=== PATIENT | female | born 1945 | race Caucasian/White ===

== ENCOUNTER 2020-09-14 12:57 | Inpatient (IN) | payer OTHER ==
[2020-09-14] VITALS (10 sets, daily range): BP systolic 99–159; BP diastolic 42–78
[~2020-09-14] VITALS: Ht 170.2 cm; Wt 121.6 kg
[2020-09-14 16:26] LABS: HEMATOCRIT 41.6 % (37.0-47.0); HEMOGLOBIN 13.8 gm/dL (12.0-15.0); MCH 29.7 pg (26.0-34.0); MCHC 33.2 g/dL (28.0-37.0); MCV 89.5 fL (80.0-100.0); RBC 4.64 mil/uL (4.20-5.00); RDW 13.5 % (10.5-14.5)
[2020-09-14 16:31] LABS: CALCIUM 9.3 mg/dL (8.5-10.1); CREATININE 1.5 mg/dL (0.6-1.0)
[2020-09-14 16:33] LABS: POTASSIUM 4.6 mmol/L (3.5-5.1)
--- NOTE | 2020-09-14 16:59 | EKG ---
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
[2020-09-14] MEDS ORDERED: BIOTIN10000 MC1 PO (17:21)
[2020-09-14] MEDS ORDERED: PRESERVISION A1 EAC2 PO (17:22)
[2020-09-14] MEDS ORDERED: D3 DOTS50 MCG PO (17:22)
[2020-09-14] MEDS ORDERED: SIMVASTATIN80 MG PO (17:23)
[2020-09-14] MEDS ORDERED: LOPRESSOR50 MG PO (17:23)
[2020-09-14] MEDS ORDERED: FUROSEMIDE 20 M20 M1 PO (17:24)
[2020-09-14] MEDS ORDERED: DRIZALMA SPRINK30 MG PO (17:24)
[2020-09-14] MEDS ORDERED: CHILDREN'S ASPI81 M1 PO (17:25)
--- NOTE | 2020-09-14 17:30 | NUR ---
PT. ARRIVED AT THE FLOOR CLOSE TO 1500; PT. AOX4; ABLE TO TRANSFER FROM STRACHER TO BED WITH ASSISTANCE X1; NO C/O PAIN; EDUCATED ABOUT ADMISSION; FALL PRECAUTIONS; GOALS THROUGH THE AFTERNOON; ST. UNDERSTANDING; DR. MATOS NOTIFIED ABOUT PT. BEING ON THE FLOOR; HR GOING FROM 60s-150s; NON SUSTAIN; AFTER 10 MINUTES PT'S HR SUSTAINED ON THE 150s: EKG URGENT ORDERED PER PROTOCOL; PHYSICIAN NOTIFIED; DR. MATOS ROUNDING ON PT.; ORDERS RECEIVED; NOTIFIED ABOUT SBP ON THE 99; PER ORDER NO RUN BOLUS; CONSULT DR. ZAMORA; DR. ZAMORA ROUNDING ON PT.; ORDERS ON PLACED; ADENOSINE GIVEN; PT. C/O DIZZINESS; HR BELOW 100 FOR A FEW SECONDS; HR UP TO 160s: PER DR. ZAMORA OK TO START ON CARDIZEM; NOTIFIED ABOUT SBP 99; OK TO START CARDIZEM GTT; SBP ON THE 120s; MEDICATION TITRATE; CHECK CHARTING; AFIB RYTHM; HR GOING TO 150s FROM TIME TO TIME; NON SUSTAINED; PT. C/O "SPELLS"; AFTER ABOUT ONE HOUR HR BELOW 100s; MONITORING; CARDIZEM GTT RUNNING; ASSESSMENT CHARGED; ADMISSION PERFORMED; FOLLOWING POC; WILL PASS ON REPORT;
[2020-09-15] VITALS (7 sets, daily range): BP systolic 111–141; BP diastolic 43–59
--- NOTE | 2020-09-15 01:13 | NUR ---
ASSESSMENT: PT REMAIN ALERT AND ORIENT TIMES THREE, FORGETFUL AT TIMES TO SITUATION. CARDIZEM GTT CONTINUES AT 10ML/HR. HR IN THE 70-80'S. DENIES SOB AND PAIN CURRENTLY. SR, AFIB PER MONITOR. ENCOURAGED TO TURN SELF IN BED. RIGHT BOOT ON LE. DENEIS DIZZINESS. SLOW PROGRESS TOWARDS DC GOALS. WILL CONTINUE TO MONITOR.
[2020-09-15 04:12] LABS: CALCIUM 8.7 mg/dL (8.5-10.1); CREATININE 1.5 mg/dL (0.6-1.0)
[2020-09-15 04:37] LABS: HEMOGLOBIN 12.3 gm/dL (12.0-15.0); MCH 29.3 pg (26.0-34.0); MCHC 32.4 g/dL (28.0-37.0); MCV 90.2 fL (80.0-100.0); RBC 4.21 mil/uL (4.20-5.00); RDW 13.9 % (10.5-14.5); WBC 7.6 thou/uL (4.0-11.0)
--- NOTE | 2020-09-15 12:12 | 2DMMODE ---
[facility] [address] 2 D/M-MODE ECHOCARDIOGRAM Name: JAVED PATTON Room #: 218-P ADM IN M.R.#: [id number] Admission: 09/14/20 Attend Phys: Sherita Gunn MD Discharge: Date of : 43 Report #: [id number] THIS REPORT FOR: cc: FAM - Family physician unknown FAM - Family physician unknown Suresh Juares MD ~ APPROVED REPORT Study performed: 09/15/2020 09:04:14 EXAM: Comprehensive 2D, Doppler, and color-flow Echocardiogram Patient Location: In-Patient Room #: 218 Status: routine BSA: 2.30 HR: 74 bpm BP: 122/43 mmHg Rhythm: PVC's Other Information Study Quality: Adequate Risk Factors: Cardiac Risk Factors: HTN Indications Dizziness and Vertigo Syncope Tachycardia Hypertension/HDD 2D Dimensions RVDd: 42.08 mm IVSd: 17.35 (7-11mm) LVOT Diam: 24.34 (18-24mm) LVDd: 52.71 mm PWd: 13.59 (7-11mm) Ascending Ao: 33.98 (22-36mm) Left Atrium: 44.07 (27-40mm) Aortic Root: 34.27 mm Volumes Left Atrial Volume (Systole) Single Plane 4CH: 51.39 mL Single Plane 2CH: 35.96 mL Biplane LA Volume: 48.00 mL LA ESV Index: 21.00 mL/m2 [facility] [employer] [place] [place] [address] 2 D/M-MODE ECHOCARDIOGRAM Name: JAVED PATTON DEVON Room #: 218-P [facility] IN M.R.#: [id number] Admission: 09/14/20 Attend Phys: Prince Rubio Discharge: Date of : 43 Report #: [id number] Aortic Valve AoV Peak Armaan.: 1.60 m/s AO Peak Gr.: 10.28 mmHg LVOT Max P.56 mmHg LVOT Max V: 1.07 m/s JESUS Vmax: 3.10 cm2 AI Vmax: 3.06 m/s AI Whitman: 0.90 m/s2 AI PHT: 1000.32 ms Mitral Valve MV Peak Gr.: 3.23 mmHg MV Mean Gr.: 1.60 mmHg E/A Ratio: 1.0 MV Decel. Time: 178.42 ms MV E Max Armaan.: 0.89 m/s MV A Armaan.: 0.93 m/s MV Max Armaan.: 0.90 m/s MV Mean Armaan.: 0.58 m/s MV VTI: 415.61 mm MV PHT: 51.74 ms MVA (PHT): 3.94 cm2 IVRT: 87.66 ms Pulmonary Valve PV Peak Armaan.: 1.21 m/s PV Peak Gr.: 5.90 mmHg Pulmonary Vein P Vein S: 0.75 m/s P Vein A: 0.22 m/s P Vein D: 0.55 m/s P Vein A Dur.: 124.6 msec P Vein S/D Ratio: 1.36 Tricuspid Valve TR Peak Armaan.: 2.01 m/s RAP Estimate: 7.00 mmHg TR Peak Gr.: 16.14 mmHg RVSP: 23.00 mmHg Left Ventricle The left ventricle is normal size. There is normal LV segmental wall motion. Mild concentric left ventricular hypertrophy. Left ventricular systolic function is normal. The left ventricular ejection fraction is within the normal range. LVEF is 55-60%. Transmitral Doppler flow pattern suggests impaired LV relaxation. Right Ventricle The right ventricle is normal size. The right ventricular systolic function is normal. [facility] [address] [place] [address] 2 D/M-MODE ECHOCARDIOGRAM Name: JAVED PATTON COVERT Room #: 218-P [facility] IN [facility].#: [id number] Admission: 09/14/20 Attend Phys: Prince Rubio Discharge: Date of : 43 Report #: [id number] Atria The left atrium size is normal. The right atrium size is normal. Aortic Valve Aortic valve is trileaflet. Mild aortic regurgitation. There is no aortic valvular stenosis. Mitral Valve Mild mitral annular calcification. There is no mitral valve regurgitation noted. No evidence of mitral valve stenosis. Tricuspid Valve The tricuspid valve is normal in structure. Trace to mild tricuspid regurgitation. PAP 23 mmHg. Pulmonic Valve Pulmonic valve is not well visualized. There is no pulmonic valvular regurgitation. Great Vessels The aortic root is normal in size. IVC is normal in size and collapses >50% with inspiration. Pericardium There is no pericardial effusion. No pleural effusion. <Conclusion> The left ventricle is normal size. Mild concentric left ventricular hypertrophy. Left ventricular systolic function is normal. The right ventricle is normal size. The left atrium size is normal. Mild aortic regurgitation. Mild mitral annular calcification. <ELECTRONICALLY SIGNED> By: Suresh Juares MD 09/15/201211 11 11 Suresh Juares MD /INF
--- NOTE | 2020-09-15 16:18 | NUR ---
PT CARE ASSUMED AT 0700. ASSESSMENTS CHARTED. MEDICATIONS CHARTED. RAC IV. SINUS RHYTHM, 1ST DEG AV. EXTERNAL FEMALE CATHETER/TOILET WITH WALKER. CARDIZEM GTT AT 10 MCG. RT FOOT BOOT, 3 TOE FRACTURE.
[2020-09-16] VITALS (8 sets, daily range): BP systolic 131–153; BP diastolic 57–69
--- NOTE | 2020-09-16 04:37 | NUR ---
SLEPT MOST OF SHIFT. UP WITH STANDBY ASSIST NEEDED. WORKING ON GOALS AND PLAN OF CARE FOR NOC. PROGRESSING TOWARDS GOALS FOR ABLATION ON THURSDAY. TURNS SELF IN BED. BOOT OFF RIGHT FOOT FOR NOC. DENIES COMPLAINTS OF CHEST PAIN OR SHORTNESS OF AIR. TELEMETRY SHOWS SR 1 AVB RATE 60-80'S. CARDIZEM GTT MAINTAINED AT 5CC/HR. CONTINUE TO ASSES CLOSELY AND MAINTAIN SAFE ENVIRONMENT.
--- NOTE | 2020-09-16 17:16 | NUR ---
PT CARE ASSUMED AT 0700. ASSESSMENTS CHARTED. MEDICATIONS CHARTED. RAC IV. SINUS RHYTHM. NPO AFTER 0000. ABLATION PROCEDURE 09-17-20. CARDIZEM GTT 5. ASSIST X 1 TO TOILET WITH WALKER.
--- NOTE | 2020-09-16 18:40 | NUR ---
VAT CONSULTED FOR PIV PLACEMENT. THIS RN ATTEMPTED US GUIDED LEFT FOREARM PIV, X2 WITHOUT SUCCESS, SO DECISION MADE TO PLACE MIDLINE. MIDLINE TO LEFT UPPER BASILIC, TRIMMED AND INSERTED 16CM, OCM EXTERNAL. RELEASED MIDLINE FOR USE.
[2020-09-17] VITALS: BP 152/78
[2020-09-17 05:00] VITALS: BP 152/82
--- NOTE | 2020-09-17 06:33 | NUR ---
PT IS ALERT AND ORIENTED X4. LUNGS ARE CLEAR. SLEEPING PILL GIVEN FOR SLEEP PT SLEPT MOST OF THE NIGHT. THEN ALSO COMPLAINS OF BACK PAIN AND MEDS GIVEN WITH SIP OF WATER FOR PAIN SEE MAR FOR TIME ADMISNISTRATION. CONSENT ON CHART FOR PROCEDURE NEEDS TEACHING ON PROCEDURE TO BE PERFORMED PRIOR TO SIGNING CONSENT. ABDOMEN IS ROUND AND SOFT. BOWEL SOUNDS ACTIVE X4. EXTERNAL CATH FOR OUTPUT. WILL CONTINUE TO MONITOR AND ASSESS PER NURSING.
[2020-09-17 08:00] VITALS: BP 141/51
--- NOTE | 2020-09-17 08:53 | NUR ---
Note Given: Y Facility List Provided:Y Facility Nestor: None chosen at this time Claudia Alba NP discussed BPCI with this pt 09/17/2020
--- NOTE | 2020-09-17 09:19 | EKG ---
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 : 1945 Requested By: Demetra Garcia Order Number: [id number] MD: Flaquito Kerr Measurements Intervals [place] Rate: 62 P: 16 [place]: 75 QRS: -39 QRSD: 117 T: 14 QT: 496 QTc: 504 Interpretive Statements Sinus rhythm First-degree AV block Nonspecific IVCD with LAD Left ventricular hypertrophy Nonspecific ST segment abnormality Compared to ECG 09/14/2020 15:32:52 Sinus rhythm has replaced supraventricular tachycardia Electronically Signed On 09-17-2020 9:19:32 CDT by Flaquito Kerr [email or web address] <ELECTRONICALLY SIGNED> By: Flaquito Kerr MD, [facility] 09/17/20 0919 0734 0734 Flaquito Kerr MD, [facility] /EPI
[2020-09-17 10:39] LABS: APTT 25.4 Seconds (24.5-32.8); INR 0.99; PROTIME 10.8 Seconds (9.3-11.4)
--- NOTE | 2020-09-17 16:42 | NUR ---
Spoke with patient who transferred to [facility] from [facility] for SVt. patient reports she lives at home with spouse. She resdies in independent home with no steps. son build ramp from garage to inside the home. Patient has walker and cane. she uses walker in home and community. She can drive but has not been due to "spells" from SVT. Patient had ablation today. Therapy evals in process. Patient interested in wc for home. She reports in community if store or medical office does not have wc difficult for her to be able to ambulate any distance with walker. PCP Dr Kate Ventura from [place]. [facility] following
--- NOTE | 2020-09-17 17:03 | NUR ---
ASSUMED CARE SHIFT CHANGE. ASSESSMENTS CHARTED.MEDS GIVEN PER JUL. VSS. C/O PAIN IN FOOT, DENIES NEED FOR PAIN MEDS, SVT ABLATION SHIFT SHIFT, L AND R GROIN SITES CDI, NO HEMATOMA. SR ON MONITOR WITH OCCASIONAL PVC. CAMPUS MONITOR CATH IN PLACE WITH GOOD OUTPUT. PT REMAINS ON POST ABLATION BEDREST, TOLERATING FAIR. PLAN FOR POSSIBLE DC IN AM. PT CURRENTLY RESTING IN BED DENYING NEEDS. CONTINUING POC. WILL PASS ONTO NOC RN.
[2020-09-17 20:45] VITALS: BP 151/74
[2020-09-17 23:43] VITALS: BP 133/70
--- NOTE | 2020-09-18 05:07 | NUR ---
SLEPT PART OF SHIFT. ASSISTED UP TO COMODEA NEEDED WITH STANDBY ASSIST. FEMALE CATH IN PLACE WHILE IN BED. WORKING ON GOALS AND PLAN OF CARE FOR NOC. TELEMETRY SHOWS SR WITH 1 DEGREE PAST ABLATION. BILATERAL GROIN SITES REMAIN CLEAN, DRY AND INTACT NO BLEEDING OR HEMOTOMAS. PROGRESSING TOWARDS DISCHARGE GOALS TODAY. CONTINUE TO ASSES CLOSELY.
[2020-09-18 05:37] VITALS: BP 146/78
[2020-09-18 08:00] VITALS: BP 132/66
--- NOTE | 2020-09-18 08:07 | NUR ---
BPCI ADVANCED LETTER PLACED WITHIN REACH ONCE PATIENT RETURNS BACK TO ROOM
--- NOTE | 2020-09-18 12:34 | NUR ---
PATIENT ALERT/ORIENTED X4. VOICES NO NEEDS OR CONCERNS. SINUS RHYTHM WITH PVCS ON THE MONITOR. OKAY BY CARDIOLOGY TO DISCHARGE. WAITING FOR DR. STEELE TO COMPLETE DISCHARGE PAPERWORK.
[2020-09-18 12:46] VITALS: BP 121/47
[2020-09-18] MEDS ORDERED: ACETAMINOPHEN325 M1 PO (12:48)
[2020-09-18 12:58] VITALS: BP 121/47
[2020-09-18 13:04] VITALS: BP 121/47
--- NOTE | 2020-09-24 08:09 | HC ---
[facility] [place] [address] CONSULTATION Name: JAVED PATTON Room #: [facility] IN M.R.#: [id number] Admission: 09/14/20 Attend Phys: Sherita Gunn MD Discharge: 09/18/20 Date of : 43 Report #: [id number] THIS REPORT FOR: cc: FAM - Family physician unknown FAM - Family physician unknown Jadiel Nuñez MD ~ DATE OF SERVICE: 09/17/2020 REASON FOR CONSULTATION: Supraventricular tachycardia. HISTORY OF PRESENT ILLNESS: The patient is a 75-year-old female who presents to the [facility] with episodes of SVT. She is a patient of Dr. Kohli. She also has a history of anemia, arthritis, back pain, GERD, hypertension, gastric ulcers, and was transferred here after having episodes of SVT and a recent syncopal episode. When she came here to [place], she was found to be in SVT, was given 12 mg of adenosine, which terminated the tachycardia. She has been kept on a diltiazem drip because of frequent episodes of recurrent SVT while in the hospital. 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 Her EKG, when this was terminated, shows sinus rhythm with no evidence of manifest preexcitation. She denies chest pain or chest tightness. She denies PND or orthopnea. She denies any further syncopal episodes other than one she experienced previously. REVIEW OF SYSTEMS: A 12-point review of systems was performed. PAST MEDICAL HISTORY: As above. SOCIAL HISTORY: Does not smoke. FAMILY HISTORY: Noncontributory. ALLERGIES: Reviewed. MEDICATIONS: Reviewed. PHYSICAL EXAMINATION: GENERAL: She is alert and oriented x 3, in no acute distress. HEENT: Oropharynx is clear. Mucous membranes are moist. Sclerae are anicteric. NECK: Supple, with no thyromegaly. HEART: Regular rate and rhythm with no murmurs, rubs, or gallops. LUNGS: Clear to auscultation bilaterally. ABDOMEN: Soft, nontender, and nondistended with no hepatosplenomegaly. EXTREMITIES: There is no clubbing, cyanosis, or edema. BACK: No CVA tenderness. NEUROLOGIC: Cranial nerves 2-[address] [address] CONSULTATION Name: JAVED PATTON HAVANA Room #: [address] [place] [address] IN M.R.#: [id number] Admission: 09/14/20 Attend Phys: Sherita Gunn MD Discharge: 09/18/20 Date of : 43 Report #: [id number] PSYCH: She is appropriate. SKIN: No rashes. LYMPHATICS: No evidence of adenopathy. ASSESSMENT AND PLAN: Supraventricular tachycardia. The patient appears to have recurrent supraventricular tachycardia. I have recommended an ablation. We discussed the details of the procedure including the risks, which include, but not limited to, bleeding, vascular damage, stroke, ND, cardiac perforation as well as damage to the blackfeet conduction system requiring pacemaker. She understands these risks and is willing to proceed. <ELECTRONICALLY SIGNED> By: Jadiel Nuñez MD 09/24/20 0809 0806 1624 Jadiel Nuñez MD /nt
--- NOTE | 2020-09-24 08:09 | P ---
[facility] [place] [address] PROCEDURE REPORT Name: JAVED PATTON Room #: 218-P [facility] IN M.R.#: [id number] Admission: 09/14/20 Attend Phys: Sherita Gunn MD Discharge: 09/18/20 Date of : 43 Report #: [id number] THIS REPORT FOR: cc: FAM - Family physician unknown FAM - Family physician unknown Jadiel Nuñez MD ~ DATE OF SERVICE: 09/17/2020 PROCEDURES PERFORMED: 1. SVT ablation, CPT code 16398. 2. EP with left atrial pacing and recording, CPT code 53793. 3. Program stimulation and pacing after IV drug infusion, CPT code 35111. 4. 3D mapping, CPT code 09841. PREOPERATIVE DIAGNOSIS: Supraventricular tachycardia, adenosine sensitive. POSTOPERATIVE DIAGNOSIS: Typical atrioventricular preston reentrant tachycardia. HISTORY: The patient is a 75-year-old with palpitations and a recent syncopal episode. She was admitted to [facility]. She had frequent episodes of SVT that looked like AV preston reentrant tachycardia and would terminate with adenosine. She is here for SVT ablation. ANESTHESIA: The patient underwent MAC anesthesia with no anesthesia related complications. DESCRIPTION OF PROCEDURE: The patient underwent informed consent. We discussed the details of the procedure including the risks, which include but not limited to bleeding, vascular damage, stroke, WA, cardiac perforation as well as damage to the iqugmiut conduction system requiring a permanent pacemaker. She understood these risks and is willing to proceed. The patient was brought to EP laboratory in fasting and sedated state, prepped and draped in a sterile fashion. I obtained access to the bilateral femoral veins placing an 8 and two 6-Amharic short sheaths in the right femoral vein and a 7-Amharic short sheath in the left femoral vein. Under fluoroscopy, I placed 3 quadripolar catheters at the HRA, His and RV positions and a decapolar catheter was placed into the coronary sinus for left atrial pacing and recording. At baseline, the patient was in sinus rhythm with a sinus cycle length of 715 milliseconds, AZ interval 110 milliseconds, QRS duration 100 milliseconds, QT interval 415 milliseconds, AH interval 145 milliseconds, HV interval 40 milliseconds. Atrial pacing was performed. AV block was noted at 330 milliseconds. Atrial ERP was noted at 310 milliseconds at a [address] cycle length. Ventricular pacing was performed and VA block was noted at 530 milliseconds with both midline and decremental VA conduction. Next, an isoproterenol infusion was initiated and with atrial burst pacing, the patient quickly went into SVT cycle length 300 [facility] [address] [place] [address] PROCEDURE REPORT Name: JAVED PATTON DEVON Room #: 218-P [facility] IN M.R.#: [id number] Admission: 09/14/20 Attend Phys: Sherita Gunn MD Discharge: 09/18/20 Date of : 43 Report #: [id number] milliseconds, septal VA time of 35 milliseconds and a VAHV response was consistently reproducible. Her SVT was easily inducible on isoproterenol. Therefore, diagnosis of typical AV preston reentrant tachycardia was made. 3D MAPPING AND ABLATION: Next, a 4 mm ablation catheter via an SR0 sheath was placed into the right atrium and a 3D geometry of the right atrium was created with specific emphasis of the His bundle region, slow pathway and coronary sinus region. Next, I performed 4 initial ablation lesions. Lesions #2, #3, and #4 had nice slow junctionals and we were happy with this result. Therefore, isoproterenol was reinitiated and surprisingly, the patient did go back into AVNRT. Therefore, I turned off isoproterenol and went back slightly higher than the prior lesions where there was a nice slow pathway potential as well. Lesion #5 had no junctional. Lesion #6 resulted in junctionals and the patient went into SVT and I came off. Lesion #7 came on while the patient was in SVT as I was still at the good side where junctionals were noted. I came on here and after about 20-30 seconds SVT terminated and we continued ablating. After another 10-20 seconds I heard a steam pop and there was transient heart block lasting about 30 seconds. We paced and then tested again and her conduction was completely back to normal. Therefore, it seemed that we had stunned the AV node transiently from the steam pop. There was never any hemodynamic compromise from the steam pop. Therefore, repeat testing was performed. Again, atrial burst pacing was 340 milliseconds. Atrial ERP was noted at 280 milliseconds at a [address] cycle length. I did measure the AH and HV intervals, AH interval was 93 and HV interval was still stable at 40 milliseconds. Next, isoproterenol infusion was initiated at 1 mcg per minute and AV block was down to 240. I continued performing single atrial extrastimuli and aggressive atrial burst pacing and we could no longer induce AVNRT and there was no longer crossover noted. Therefore, it appeared that the slow pathway had been eliminated. Fortunately, her conduction appeared to be intact with no issues and post-ablation, she was in sinus rhythm, sinus cycle length of 530 milliseconds, AZ interval 175 milliseconds, QRS duration 89 milliseconds, QT interval 315 milliseconds, AH interval 93 milliseconds, HV interval of 40 milliseconds. As such, the patient awoke neurologically and hemodynamically intact. No complications and no significant bleeding. CONCLUSIONS: 1. Successful ablation of typical AV preston reentrant tachycardia. 2. Normal SA preston function. 3. Normal AV preston function. 4. Normal His-Purkinje function. 5. No other inducible arrhythmias on or off isoproterenol. [facility] [address] [place] [address] PROCEDURE REPORT Name: SHARLUKEJAVED DEVON Room #: 218-P DIS IN M.R.#: [id number] Admission: 09/14/20 Attend Phys: Sherita Gunn MD Discharge: 09/18/20 Date of : 43 Report #: [id number] 6. The patient does have frequent PVCs noted during the EP study, which were also noted on telemetry and typically would result in induction of her AVNRT. <ELECTRONICALLY SIGNED> By: Jadiel Nuñez MD 09/24/20 0809 1507 194 Jadiel Nuñez MD /nt
== END 2020-09-18 14:42 | disposition home or self-care (01) | DRG 273 ==
LOC: 2N 12:57
PROVIDERS: Internal Medicine Cardiovascular Disease; ADMIT Hospitalist; ATTEND Hospitalist
PROC: 05HC33Z Insertion of Infusion Device into Left Basilic Vein, Percutaneous Approach (ICD-10-PCS; principal; 2020-09-14)
PROC: 4A0234Z Measurement of Cardiac Electrical Activity, Percutaneous Approach (ICD-10-PCS; 2020-09-17)
PROC: 02583ZZ Destruction of Conduction Mechanism, Percutaneous Approach (ICD-10-PCS; 2020-09-17)
PROC: 4A023FZ Measurement of Cardiac Rhythm, Percutaneous Approach (ICD-10-PCS; 2020-09-17)
PROC: 02K83ZZ Map Conduction Mechanism, Percutaneous Approach (ICD-10-PCS; 2020-09-17)
DX: I47.1 Supraventricular tachycardia (principal); R65.11 Systemic inflammatory response syndrome (SIRS) of non-infectious origin with acute organ dysfunction; Z68.41 Body mass index [BMI] 40.0-44.9, adult; M19.90 Unspecified osteoarthritis, unspecified site; K21.9 Gastro-esophageal reflux disease without esophagitis; I10 Essential (primary) hypertension; G89.29 Other chronic pain; M54.9 Dorsalgia, unspecified; Z96.659 Presence of unspecified artificial knee joint; E78.5 Hyperlipidemia, unspecified; E78.00 Pure hypercholesterolemia, unspecified; F32.9 Major depressive disorder, single episode, unspecified; R53.81 Other malaise; E66.01 Morbid (severe) obesity due to excess calories; Z20.822 Contact with and (suspected) exposure to COVID-19; Z88.1 Allergy status to other antibiotic agents; Z88.8 Allergy status to other drugs, medicaments and biological substances; Z82.49 Family history of ischemic heart disease and other diseases of the circulatory system; Z87.891 Personal history of nicotine dependence; Z79.82 Long term (current) use of aspirin; Z79.899 Other long term (current) drug therapy
CPT/HCPCS: 10081; 10797; 62110; 62900; 70005